=== PATIENT | female | born 1970 | race Caucasian/White ===

== ENCOUNTER 2018-10-31 20:44 | Observation (INO) | payer OTHER ==
[~2018-10-31] VITALS: Ht 180.3 cm; Wt 113.0 kg
[~2018-10-31 20:44] MED LIST: Amitriptyline100 MG PO; FAMO10 MT; ONDA4ODT SL; Percocet 5-3251 EACH PO; Zofran8 MG PO
[2018-10-31 22:09] LABS: BASOPHILS ABSOLUTE AUTO 0.02 K/mm3 (0.00-0.23); BASOPHILS PERCENT AUTO 0 % (0-2); EOSINOPHILS PERCENT AUTO 0 % (0-6); Hemoglobin 11.1 g/dL (11.5-16.0); IMMATURE GRAN ABSOLUTE AUTO 0.07 K/mm3 (0.00-0.10); IMMATURE GRAN PERCENT AUTO 0 % (0-1); LYMPHOCYTES ABSOLUTE AUTO 1.44 K/mm3 (0.84-5.20); LYMPHOCYTES PERCENT AUTO 9 % (21-46); MONOCYTES ABSOLUTE AUTO 1.01 K/mm3 (0.16-1.47); MONOCYTES PERCENT AUTO 6 % (4-13); Mean Corpuscular HGB 30.2 pg (26.0-34.0); Mean Corpuscular HGB Conc 31.7 g/dL (31.5-36.5); Mean Corpuscular Volume 95 fL (80-100); Mean Platelet Volume 10.5 fL (9.1-12.4); NEUTROPHILS ABSOLUTE AUTO 13.56 K/mm3 (1.96-9.15); NEUTROPHILS PERCENT AUTO 84 % (41-73); Platelet Count 286 K/mm3 (150-400); RDW Coefficient Variation 12.7 % (11.7-14.2); RDW Standard Deviation 44.1 fL (35.1-46.3); Red Blood Cell Count 3.68 M/mm3 (3.80-5.20)
[2018-10-31 22:32] LABS: Alanine Aminotransfer (ALT/SGP 15 U/L (12-78); Albumin, Blood 3.5 g/dL (3.4-5.0); Albumin/Globulin Ratio 0.8 (0.8-1.8); Alk Phos 75 U/L (50-136); Anion Gap 9 mmol/L (6-16); Aspartate Aminotrans (AST/SGOT 9 U/L (12-37); Bilirubin, Total 0.3 mg/dL (0.1-1.0); Blood Urea Nitrogen 12 mg/dL (8-24); Bun/Creatinine Ratio 14.9 (12.0-20.0); CO2, Blood 22 mmol/L (21-32); Calcium, Blood 8.8 mg/dL (8.5-10.1); Chloride, Blood 109 mmol/L (98-108); Creatinine, Blood 0.81 mg/dL (0.40-1.00); Globulin, Blood 4.2 g/dL (2.2-4.0); Glomerular Filtration Rate >60 (60-); Glucose, Blood 118 mg/dL (70-99); Potassium, Blood 4.2 mmol/L (3.5-5.5); Sodium, Blood 140 mmol/L (136-145); Total Protein, Blood 7.7 g/dL (6.4-8.2)
[2018-10-31] MEDS ORDERED: VITAMIN D250000 UNIT PO (22:50)
[2018-10-31] MEDS ORDERED: Ferrous Sulfat324 MG PO (22:50)
[2018-10-31] MEDS ORDERED: TOPI50 PO (22:50)
[2018-10-31] MEDS ORDERED: AMIT50 PO (22:51)
[2018-10-31 23:30] LABS: Source, Urine Clean Catch
[2018-10-31 23:33] LABS: Bilirubin, Urine Neg (Neg); Blood, Urine Neg (Neg); Glucose Qualitative, Urine Neg (Neg); Ketones, Urine Neg (Neg); Leukocyte Esterase, Urine Neg (Neg); Nitrite, Urine Neg (Neg); Protein, Urine Neg (Neg); Urobilinogen, Urine NORM (Normal)
[2018-10-31 23:35] LABS: Appearance, Urine Clear (Clear); Color, Urine Yellow (P-Yellow)
--- NOTE | 2018-11-01 10:19 | NUR ---
PT TAKEN TO OR AT APPROXIMATELY 1010.
--- NOTE | 2018-11-01 18:27 | NUR ---
SHIFT SUMMARY PT HAS DENIED PAIN POST-OP. SHE IS TOLERATING PO WELL. PT IS A 1-2 ASSIST WITH GAIT BELT WHEN OOB. PT IS ABLE TO TRANSFER SHORT DISTANCES. SHE AMBULATES MINIMALLY AT HOME. VSS. WILL MONITOR UNTIL REPORT TO ONCOMING RN.
--- NOTE | 2018-11-01 18:47 | NUR ---
STRAIGHT CATH FOR POST VOID RESIDUAL OF 617ML. PT TOLERATED WELL. WILL CONTINUE TO MONITOR.
--- NOTE | 2018-11-02 06:54 | NUR ---
SUMMARY PT HAD I/O CATH DURING DAY SHIFT FOR RETENTION. PVR WAS CHECKED THIS AM FOR 200 ML. WILL CONT TO MONTITOR. PT REPORTS BASELINE NO ISSUES. ENCOURAGED.
--- NOTE | 2018-11-02 11:14 | NUR ---
DR CASILLAS IN TO SEE PT.
[2018-11-02] MEDS ORDERED: ACET325 PO (11:26)
[2018-11-02] MEDS ORDERED: LEVFLO500 PO (11:27)
--- NOTE | 2018-11-02 12:28 | NUR ---
DISCHARGED REVIEWED DC INSTRUCTIONS W/PT; VERBALIZED UNDERSTANDING. DC'D IV, CATHETER INTACT. PT LEFT UNIT IN WC W/POSSESSIONS IN HAND ACCOMPANIED BY FAMILY MEMBER.
== END 2018-11-02 12:20 | disposition home or self-care (01) ==
LOC: ER 20:44 → SURS 20:45 → ER 11-01 03:09 → SURS 11-01 03:09 → ER 11-01 12:04 → SURS 11-01 12:04
PROVIDERS: Physician Assistant; ADMIT Surgery
PROC: 0DTJ4ZZ Resection of Appendix, Percutaneous Endoscopic Approach (ICD-10-PCS; principal; 2018-11-01 09:00)
DX: K35.33 Acute appendicitis with perforation, localized peritonitis, and gangrene, with abscess (principal); J45.909 Unspecified asthma, uncomplicated; G80.9 Cerebral palsy, unspecified; Z88.0 Allergy status to penicillin
CPT/HCPCS: 51701; 74177; 80053; 81003; 81025; 83690; 85025; 88304; 96361; 96361-59; 96365-59; 96375-59; 99285-25; G0378; J0696; J1100; J1170; J2250; J2405; J2704; J3010; J7030; Q9967

== ENCOUNTER → 2019-05-25 | Outpatient (CLI) | payer OTHER ==
[~2019-05-25] MED LIST changes: +ACET325 PO; +AMIT50 PO; +Ferrous Sulfat324 MG PO; +LEVFLO500 PO; +TOPI50 PO; +VITAMIN D250000 UNIT PO
[2019-05-27 14:07] LABS: HPV 16 Negative (Negative); HPV 18 Negative (Negative); HPV OTHER HR TYPES Negative (Negative)
== END | disposition home or self-care (01) ==
LOC: LAB SHORT 11:45 → LAB 11:45
PROVIDERS: Student in an Organized Health Care Education/Training Program
DX: Z12.4 Encounter for screening for malignant neoplasm of cervix (principal)
CPT/HCPCS: 87624; G0145

== ENCOUNTER 2020-03-23 16:39 | Emergency (ER) | payer OTHER ==
[~2020-03-23] VITALS: Ht 182.9 cm; Wt 113.4 kg
[2020-03-23 17:12] LABS: BASOPHILS ABSOLUTE AUTO 0.02 K/mm3 (0.00-0.23); BASOPHILS PERCENT AUTO 0 % (0-2); EOSINOPHILS ABSOLUTE AUTO 0.29 K/mm3 (0.00-0.68); EOSINOPHILS PERCENT AUTO 3 % (0-6); Hematocrit 39.4 % (33.0-51.0); Hemoglobin 12.8 g/dL (11.5-16.0); IMMATURE GRAN ABSOLUTE AUTO 0.03 K/mm3 (0.00-0.10); IMMATURE GRAN PERCENT AUTO 0 % (0-1); LYMPHOCYTES ABSOLUTE AUTO 2.88 K/mm3 (0.84-5.20); LYMPHOCYTES PERCENT AUTO 26 % (21-46); MONOCYTES ABSOLUTE AUTO 1.56 K/mm3 (0.16-1.47); MONOCYTES PERCENT AUTO 14 % (4-13); Mean Corpuscular HGB 30.1 pg (26.0-34.0); Mean Corpuscular HGB Conc 32.5 g/dL (31.5-36.5); Mean Corpuscular Volume 93 fL (80-100); Mean Platelet Volume 10.3 fL (9.1-12.4); NEUTROPHILS ABSOLUTE AUTO 6.13 K/mm3 (1.96-9.15); NEUTROPHILS PERCENT AUTO 56 % (41-73); Platelet Count 334 K/mm3 (150-400); RDW Coefficient Variation 12.7 % (11.7-14.2); Red Blood Cell Count 4.25 M/mm3 (3.80-5.20); White Blood Cell Count 10.91 K/mm3 (4.00-11.30)
[2020-03-23] MEDS ORDERED: BACL10 PO (17:29)
[2020-03-23 17:36] LABS: Alanine Aminotransfer (ALT/SGP 18 U/L (12-78); Albumin, Blood 3.5 g/dL (3.4-5.0); Albumin/Globulin Ratio 0.9 (0.8-1.8); Alk Phos 69 U/L (50-136); Anion Gap 8 mmol/L (6-16); Aspartate Aminotrans (AST/SGOT 14 U/L (12-37); Bilirubin, Total 0.5 mg/dL (0.1-1.0); Blood Urea Nitrogen 16 mg/dL (8-24); Bun/Creatinine Ratio 24.8 (12.0-20.0); CO2, Blood 23 mmol/L (21-32); Calcium, Blood 8.5 mg/dL (8.5-10.1); Chloride, Blood 112 mmol/L (98-108); Creatinine, Blood 0.64 mg/dL (0.40-1.00); Globulin, Blood 4.1 g/dL (2.2-4.0); Glomerular Filtration Rate >60 (60-); Glucose, Blood 113 mg/dL (70-99); Sodium, Blood 143 mmol/L (136-145); Total Protein, Blood 7.6 g/dL (6.4-8.2)
[2020-03-23 17:37] LABS: Troponin I <0.015 ng/mL (0.000-0.040)
[2020-03-23 18:58] LABS: Source, Urine Clean Catch
[2020-03-23 19:13] LABS: Appearance, Urine Clear (Clear); Blood, Urine 2+ (Neg); Color, Urine Yellow (P-Yellow); Glucose Qualitative, Urine Neg (Neg); Ketones, Urine 2+ (Neg); Leukocyte Esterase, Urine 1+ (Neg); Nitrite, Urine Neg (Neg); Protein, Urine 2+ (Neg); Urobilinogen, Urine 1+ (Normal)
[2020-03-23 19:23] LABS: Bilirubin, Urine 1+ (Neg)
[2020-03-23 19:24] LABS: Squamous Epithelial Cells Many /hpf (Few); White Blood Cells, Urine 0-2 /hpf (0-5)
[2020-03-23 19:25] LABS: Bacteria Mod /hpf; Mucus Light (0-Heavy)
[2020-03-23] MEDS ORDERED: ONDA4ODT MM (20:29)
== END 2020-03-23 20:45 | disposition home or self-care (01) ==
LOC: ER 16:39
PROVIDERS: Emergency Medicine; Physician Assistant
DX: K52.9 Noninfective gastroenteritis and colitis, unspecified (principal); Z20.828 Contact with and (suspected) exposure to other viral communicable diseases; Z79.899 Other long term (current) drug therapy
CPT/HCPCS: 36415; 80053; 81001; 84484; 85025; 87086; 96361; 96374; 99284-25; A9270-GY; J2405; J7030; U0004

== ENCOUNTER 2021-02-23 06:47 | Day surgery (SDC) | payer OTHER ==
[~2021-02-23] VITALS: Ht 177.8 cm; Wt 102.7 kg
[~2021-02-23 06:47] MED LIST changes: +BACL10 PO; +ONDA4ODT MM
== END 2021-02-23 09:54 | disposition home or self-care (01) ==
LOC: MHTC 06:47
DX: I49.5 Sick sinus syndrome (principal); G80.9 Cerebral palsy, unspecified; G40.89 Other seizures
CPT/HCPCS: 33285; C1764

== ENCOUNTER → 2022-12-22 | Outpatient (CLI) | payer OTHER | END | disposition home or self-care (01) | LOC: LAB SHORT 16:16 → LAB 16:16 | DX: R11.2 Nausea with vomiting, unspecified (principal) | CPT/HCPCS: 87338 ==

== ENCOUNTER → 2022-12-22 | Outpatient (CLI) | payer OTHER | LOC: LAB 16:16 → LAB SHORT 16:16 | DX: K59.00 Constipation, unspecified (principal) | CPT/HCPCS: 83993 ==

== ENCOUNTER 2024-08-09 05:33 | Observation (INO) | payer OTHER ==
[~2024-08-09] VITALS: Ht 182.9 cm; Wt 99.2 kg
[2024-08-09] MEDS ORDERED: NS 1,000 ML IV SCH ×2 (06:05→11:55)
[2024-08-09] MEDS ORDERED: Ondansetron HCl 2 MG / ML 2ML Vial IV ONE (06:05)
[2024-08-09] MEDS ORDERED: Ketorolac Tromethamine 30mg Vial IV ONE (06:15)
[2024-08-09 06:20] LABS: BASOPHILS ABSOLUTE AUTO 0.14 K/mm3 (0.00-0.23); BASOPHILS PERCENT AUTO 0 % (0-2); EOSINOPHILS ABSOLUTE AUTO 0.06 K/mm3 (0.00-0.68); EOSINOPHILS PERCENT AUTO 0 % (0-6); Hematocrit 40.1 % (33.0-51.0); Hemoglobin 13.3 g/dL (11.5-16.0); IMMATURE GRAN ABSOLUTE AUTO 0.41 K/mm3 (0.00-0.10); IMMATURE GRAN PERCENT AUTO 1 % (0-1); LYMPHOCYTES ABSOLUTE AUTO 1.38 K/mm3 (0.84-5.20); LYMPHOCYTES PERCENT AUTO 4 % (21-46); MONOCYTES ABSOLUTE AUTO 0.48 K/mm3 (0.16-1.47); MONOCYTES PERCENT AUTO 1 % (4-13); Mean Corpuscular HGB Conc 33.2 g/dL (31.5-36.5); Mean Corpuscular Volume 94 fL (80-100); Mean Platelet Volume 9.4 fL (9.1-12.4); NEUTROPHILS ABSOLUTE AUTO 34.65 K/mm3 (1.96-9.15); NEUTROPHILS PERCENT AUTO 93 % (41-73); Platelet Count 309 K/mm3 (150-400); RDW Coefficient Variation 12.4 % (11.7-14.2); RDW Standard Deviation 42.7 fL (35.1-46.3); Red Blood Cell Count 4.29 M/mm3 (3.80-5.20); White Blood Cell Count 37.12 K/mm3 (4.00-11.30)
[2024-08-09 06:43] LABS: Albumin, Blood 3.2 g/dL (3.4-5.0); Albumin/Globulin Ratio 0.8 (0.8-1.8); Bilirubin, Total 0.3 mg/dL (0.1-1.0); Bun/Creatinine Ratio 34.1 (12.0-20.0); Calcium, Blood 8.6 mg/dL (8.5-10.1); Creatinine, Blood 0.53 mg/dL (0.40-1.00); Magnesium, Blood 1.9 mg/dL (1.6-2.4); Potassium, Blood 3.9 mmol/L (3.5-5.5); Total Protein, Blood 7.2 g/dL (6.4-8.2)
[2024-08-09 06:53] LABS: Influenza A, PCR NEGATIVE (NEGATIVE); Influenza B, PCR NEGATIVE (NEGATIVE); Resp Syncytial Virus, PCR NEGATIVE (NEGATIVE); SARS-Cov-2 (COVID-19) PCR, MMC NEGATIVE (NEGATIVE)
[2024-08-09 09:55] LABS: Source, Urine Clean Catch
[2024-08-09 10:00] LABS: Appearance, Urine Clear (Clear); Bilirubin, Urine Neg (Neg); Blood, Urine Neg (Neg); Color, Urine Yellow (P-Yellow); Glucose Qualitative, Urine Neg (Neg); Ketones, Urine Neg (Neg); Leukocyte Esterase, Urine Neg (Neg); Nitrite, Urine Neg (Neg); Protein, Urine Neg (Neg); Urobilinogen, Urine 1+ (Normal)
[2024-08-09] MEDS ORDERED: FLU VACC TS2024-25(6MOS UP)/PF 45 MCG/0.5 ML SYRINGE IM SCH (11:55)
[2024-08-09 13:52] VITALS: BP 153/119
[2024-08-09 15:41] VITALS: BP 151/112
[2024-08-09 17:49] LABS: U Amphetamine Screen Not Detected; U Barbituate Screen Not Detected; U Benzodiazapine Screen Not Detected; U Buprenorphine Screen Not Detected; U Cannabinoids Screen Not Detected; U Cocaine Screen Not Detected; U Methadone Screen Not Detected; U Methamphetamine Screen Not Detected; U Opiates Screen Not Detected; U Oxycodone Screen Not Detected; U Phencyclidine Screen Not Detected
[2024-08-09] MEDS ORDERED: LevoFLOXacin 750 MG Tab PO SCH (19:01)
[2024-08-09 20:56] VITALS: BP 182/60
[2024-08-09] MEDS ORDERED: Ondansetron HCl 2 MG / ML 2ML Vial IV PRN (21:00)
[2024-08-09] MEDS ORDERED: Docusate Sodium 100 MG Cap PO SCH (21:00)
[2024-08-09] MEDS ORDERED: Amitriptyline HCl 50 MG Tab PO SCH (21:00)
[2024-08-09 22:48] VITALS: BP 122/81
[2024-08-10 04:57] VITALS: BP 138/87
[2024-08-10 05:23] LABS: BASOPHILS ABSOLUTE AUTO 0.04 K/mm3 (0.00-0.23); BASOPHILS PERCENT AUTO 0 % (0-2); EOSINOPHILS ABSOLUTE AUTO 0.01 K/mm3 (0.00-0.68); EOSINOPHILS PERCENT AUTO 0 % (0-6); Hematocrit 35.4 % (33.0-51.0); Hemoglobin 11.7 g/dL (11.5-16.0); IMMATURE GRAN ABSOLUTE AUTO 0.05 K/mm3 (0.00-0.10); IMMATURE GRAN PERCENT AUTO 0 % (0-1); LYMPHOCYTES ABSOLUTE AUTO 0.86 K/mm3 (0.84-5.20); LYMPHOCYTES PERCENT AUTO 5 % (21-46); MONOCYTES ABSOLUTE AUTO 0.98 K/mm3 (0.16-1.47); MONOCYTES PERCENT AUTO 5 % (4-13); Mean Corpuscular HGB 30.5 pg (26.0-34.0); Mean Corpuscular HGB Conc 33.1 g/dL (31.5-36.5); Mean Corpuscular Volume 92 fL (80-100); Mean Platelet Volume 9.9 fL (9.1-12.4); NEUTROPHILS ABSOLUTE AUTO 16.86 K/mm3 (1.96-9.15); NEUTROPHILS PERCENT AUTO 90 % (41-73); Platelet Count 303 K/mm3 (150-400); RDW Coefficient Variation 12.8 % (11.7-14.2); RDW Standard Deviation 42.6 fL (35.1-46.3); Red Blood Cell Count 3.84 M/mm3 (3.80-5.20)
--- NOTE | 2024-08-10 05:48 | NUR ---
SHIFT SUMMARY 53 YR F ADMITTED JUST BEFORE SHIFT CHANGE. FULL CODE. 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 THIS MAKE IT VERY DIFFICULT FOR HER TO HOLD ANYTHING IN HER HANDS SUCH A PHONE OR A DRINK. SHE HAD NAUSEA WITH VOMITING EARLY IN THE SHIFT AND WAS MEDICATED W/ ZOFRAN W/ GOOD RESULTS. IT HAPPENED AGAIN AT APPROX 0400 AND SHE WAS AGAIN GIVEN ZOFRAN. SHE HAD AN EPISODE OF [facility]NCOPE AT HOME AND BECAUSE SHE HAS A LOOP RECORDER, INFORMATION IS TO BE REQUESTED FROM [employer] FOR THE TIME OF THE SYNCOPE EPISODE. INFO WILL BE PASSED ON TO DAY SHIFT THEY ARE CLOSED DURING THE EVENING HOURS. BED IN LOW POSITION AND CALL LIGHT IN REACH.
[2024-08-10 06:13] LABS: Bun/Creatinine Ratio 40.4 (12.0-20.0); Creatinine, Blood 0.57 mg/dL (0.40-1.00); Potassium, Blood 3.8 mmol/L (3.5-5.5)
[2024-08-10 07:51] VITALS: BP 145/80
[2024-08-10] MEDS ORDERED: Amitriptyline HCl 50 MG Tab PO SCH (09:00)
[2024-08-10] MEDS ORDERED: Enoxaparin 40 MG/0.4 ML SYR SC SCH (09:00)
--- NOTE | 2024-08-10 09:30 | NUR ---
pt has some nausea this am, too early for odalis, did give fizzy drink to sip on, a/ox3, pleasant and cooperative with care, follows commands well, lungs are clear in upper [place], dim in bases, resp even and unlabored, no cough noted, on r/a, hrr, tele in place running sr to st, per monitor see strip, +1 edema noted to b/l le, ppp+1, cap refill<3 sec, vs stable, afebrile, piv to rac and lw, sites are clear and patent, btx4, abd flat soft nontender, voids via bsc also has briefs in place, skin c/w/d, gross motor movements to arm, hard tremors, keith, call light in reach.
[2024-08-10 12:04] VITALS: BP 234/203
--- NOTE | 2024-08-10 12:57 | NUR ---
Upon receiving a referral for spiritual care, I visited the patient. She tells me about her family, the of her son (3 yrs ago) and her baptism, ([place] [employer]. I We talk about her medical issues and I provide prayer for her health and for mental peace. Patient responded well and showed signs of reduced stress. I will continue to remain available to patient and family.
[2024-08-10 16:38] VITALS: BP 139/65
--- NOTE | 2024-08-10 19:09 | NUR ---
pt resting in bed, unable to eat regular food due to dentures, ordered minced moist food, no acute changes this shift, her tremors are significant, got a very high b/p this afternoon but she was really shaking even though this nurse held her arm, Dr. De Los Santos was notified. she was not symtomatic. call light in reach.
[2024-08-10 19:24] VITALS: BP 123/77
[2024-08-10 23:57] VITALS: BP 115/63
[2024-08-11 02:52] VITALS: BP 107/66
--- NOTE | 2024-08-11 04:46 | NUR ---
SHIFT SUMMARY: PT AOX4 ABLE TO MAKE NEEDS KNOWN. TOLERATED MEDICATIONS WELL WITHOUT ISSUE. SLEPT SOUNDLY THROUGH MOST OF THE NIGHT AFTER NOT BEING ABLE TO SLEEP THE LAST DAY. VSS, NO ACUTE EVENTS OVERNIGHT. PT IN BED SLEEPING, BED IN LOWEST POSITION, CALL LIGHT IN REACH.
[2024-08-11 05:38] LABS: Hematocrit 32.9 % (33.0-51.0); Hemoglobin 11.1 g/dL (11.5-16.0); Mean Corpuscular HGB 31.4 pg (26.0-34.0); Mean Corpuscular HGB Conc 33.7 g/dL (31.5-36.5); Mean Corpuscular Volume 93 fL (80-100); Mean Platelet Volume 10.3 fL (9.1-12.4); Platelet Count 253 K/mm3 (150-400); RDW Coefficient Variation 12.5 % (11.7-14.2); RDW Standard Deviation 43.1 fL (35.1-46.3); Red Blood Cell Count 3.54 M/mm3 (3.80-5.20); White Blood Cell Count 10.83 K/mm3 (4.00-11.30)
[2024-08-11 05:59] LABS: Bun/Creatinine Ratio 25.3 (12.0-20.0); Calcium, Blood 8.1 mg/dL (8.5-10.1); Creatinine, Blood 0.55 mg/dL (0.40-1.00)
[2024-08-11 06:06] LABS: BASOPHILS PERCENT MAN 0 % (0-2); EOSINOPHILS PERCENT MAN 0 % (0-6); LYMPHOCYTES ABSOLUTE MAN 1.29 K/mm3 (0.84-5.20); LYMPHOCYTES PERCENT MAN 12 % (21-46); MONOCYTES ABSOLUTE MAN 0.97 K/mm3 (0.16-1.47); MONOCYTES PERCENT MAN 9 % (4-13); NEUTROPHILS ABSOLUTE MAN 8.55 K/mm3 (1.96-9.15); SEG NEUTROPHILS PERCENT MAN 79 % (41-73); TOTAL CELLS COUNTED 100
[2024-08-11 07:07] VITALS: BP 113/79
[2024-08-11] MEDS ORDERED: FERROUS GLUCON324 M7 PO (13:13)
[2024-08-11] MEDS ORDERED: AMIT50 PO (14:04)
[2024-08-11] MEDS ORDERED: VISBIOME 112.51 EACH PO (15:32)
[2024-08-11] MEDS ORDERED: DOCU100 PO (15:32)
[2024-08-11] MEDS ORDERED: LEVO750 PO (15:32)
--- NOTE | 2024-08-11 15:54 | NUR ---
DISCHARGE SUMMARY PT DISCAHRGED FROM HOSPITAL TO HOME. DISCHARGE PACKET REVIEWED WITH PT AND PT MOM AT BEDSIDE WHO IS HER PRIMARY CAREGIVER. NEEDED RX SENT TO [facility]. IV'S REMOVED BY JOSIAS WEBER, SITES APPEARED WNL. PT ABLE TO STAND PIVOT TO WHEELCHAIR WITH SBA ONLY.
== END 2024-08-11 15:54 | disposition home or self-care (01) ==
LOC: ER 05:33 → MEDS 05:34
PROVIDERS: Student in an Organized Health Care Education/Training Program; ADMIT Internal Medicine
DX: I47.20 Ventricular tachycardia, unspecified (principal); G80.3 Athetoid cerebral palsy; I10 Essential (primary) hypertension; D50.8 Other iron deficiency anemias; Z79.899 Other long term (current) drug therapy; Z88.0 Allergy status to penicillin
CPT/HCPCS: 0241U; 36415; 71045; 71250; 74177; 80048; 80053; 81003; 83605; 83735; 83880; 84145; 84484; 85007; 85025; 85027; 87040; 93005; 93010; 93291; 96361; 96372; 96374-59; 96375; 96376; 99285-25; A9270; G0378; J1650; J1885; J2405; J7030; P9612; Q9967